=== PATIENT | female | born 1955 | race African-American/Black ===

== ENCOUNTER 2017-04-17 06:32 | Day surgery (SDC) | payer MEDICARE, OTHER ==
[2017-04-16 10:29] VITALS: BMI 42.2
--- NOTE | 2017-04-16 13:14 | PREOPHP ---
DATE OF ADMISSION: 04/17/2017 HISTORY OF PRESENT ILLNESS: This 61-year-old patient is admitted for elective cataract surgery on the left eye. The patient has had decreased vision over the past year, creating difficulty with both distance and reading vision. The patient denies prior history of eye disease or injury, however, the patient has had a 40-year history of insulin-dependent diabetes mellitus, systemic hypertension, and hypercholesterolemia. CURRENT MEDICATIONS: 1. Lantus insulin. 2. Furosemide. 3. Hydrochlorothiazide. 4. Omeprazole. 5. Lisinopril. 6. Simvastatin. 7. Abilify. 8. The patient is on aspirin which has been discontinued one week prior to surgery. ALLERGIES: THERE ARE NO KNOWN ALLERGIES. PHYSICAL EXAMINATION: EYES: Visual acuity with best correction is 20/50 in each eye. Slit lamp examination reveals anterior cortical and nuclear sclerotic cataracts present in both eyes. Applanation tonometry is 21 mmHg in both eyes. Examination of the retinae is within normal limits. However, there is evidence of previously treated diabetic macular edema in both eyes. The patient has also previously had intravitreal Avastin injections for the macular edema. DIAGNOSIS: Cataract, left eye. PLAN: Cataract extraction with lens implant, left eye. The risks and alternatives to the surgery have been discussed with her as well as the potential limitation of visual improvement due to the diabetic macular edema. The patient understands this and agrees to proceed with surgery in hopes of attaining some improvement of visual function leading to greater ability to perform activities of daily living. Dictated By: Will Kilgore MD /cleve/david /Document#: [id number]
[2017-04-17] VITALS (7 sets, daily range): BP systolic 20–130; BP diastolic 50–62; PULSE 58–74; RESP 16–30; Ht 165.1 cm; Wt 114.0 kg
[~2017-04-17] VITALS: Ht 165.1 cm; Wt 114.0 kg
[~2017-04-17 06:32] MED LIST: ACET-2047 PO; ALBU8.5H5 IH; ARIP30TA10 PO; ASPI325T4 PO; CARBACHOL 0.01% 1.5 ML OPH INJ ONE; CEFAZOLIN 1 GM INJ ONE; CYCLOPENTOLATE/PHENYLEPH 2 ML OPH OPER SCH; DEXAMETHASONE 4 MG/ML 1 ML INJ ONE; DICLOFENAC 0.1% 2.5 ML OPH OPER SCH; EPINEPHrine 1 MG INJ ONE; GENTAMICIN 80 MG INJ ONE; HYDR-3498 PO; HYDR-3672 PO; LIDOCAINE 4% (MPF) 5 ML INJ ONE; LISI-313 PO; MAGN400O4 PO; METO-336 PO; ONDA4VIA2 IV; PANT40TA4 PO; SIMV20TA2 PO; SS SC; TROPICAMIDE 1% 3ML OPH OPER SCH; UDMYL PO; ZOLP5TAB7 PO; [UNRECOGNIZED DRUG - CODE] MC; [UNRECOGNIZED DRUG - CODE] TP
[2017-04-17] MEDS ORDERED: MOXIFLOXACIN 0.5% 3 ML OPH ONE (07:13)
[2017-04-17] MEDS ORDERED: MOXIFLOXACIN 0.5% 3 ML OPH OPER SCH (07:30)
[2017-04-17] MEDS ORDERED: LISI40TA9 PO (07:33)
[2017-04-17] MEDS ORDERED: HYDR100T25 PO (07:36)
[2017-04-17] MEDS ORDERED: OMEP40CA6 PO (07:36)
[2017-04-17] MEDS ORDERED: HYDR12.58 PO (07:37)
[2017-04-17] MEDS ORDERED: POTA10TA37 PO (07:38)
[2017-04-17] MEDS ORDERED: FURO20TA3 PO (07:38)
[2017-04-17] MEDS ORDERED: HYDR-902 PO (07:39)
[2017-04-17] MEDS ORDERED: LANT3I SC (07:39)
[2017-04-17] MEDS ORDERED: NOVMIX SC (07:40)
[2017-04-17] MEDS ORDERED: BEN25 PO (07:41)
[2017-04-17] MEDS ORDERED: DEXAMETHASONE 4 MG/ML 1 ML INJ INJ ONE (08:25)
[2017-04-17] MEDS ORDERED: CARBACHOL 0.01% 1.5 ML OPH INJ IO ONE (08:25)
[2017-04-17] MEDS ORDERED: CEFAZOLIN 1 GM INJ INJ ONE (08:25)
[2017-04-17] MEDS ORDERED: PROPOFOL 20 ML ONE (09:12)
--- NOTE | 2017-04-17 09:19 | SIPON ---
Date/Time of Note Date/Time of Note DATE: 04/17/17 TIME: 09:18 Operative Report Preoperative Diagnosis cataract os Postoperative Diagnosis same Operation/Procedure Performed cataract lenbs implant left eye Surgeon Magui montero none Anesthesia: MAC Estimated blood loss: none Transfusion Required none Specimen none Grafts/Implants lens implant os Complications none ANGÉLICA CISNEROS MD Apr 17, 2017 09:19
[2017-04-17] MEDS ORDERED: LABETALOL HCL 20MG INJ IV PRN (09:30)
[2017-04-17] MEDS ORDERED: DIPHENHYDRAMINE 50 MG INJ IV PRN (09:30)
[2017-04-17] MEDS ORDERED: METOCLOPRAMIDE 10 MG INJ IV PRN (09:30)
[2017-04-17] MEDS ORDERED: hydrALAzine 20 MG INJ IV PRN (09:30)
[2017-04-17] MEDS ORDERED: FENTAnyl 50 MCG/ML VIAL IV PRN ×3 (09:30)
[2017-04-17] MEDS ORDERED: EPHEDrine SULFATE 50 MG/5 ML SYG IV PRN (09:30)
[2017-04-17] MEDS ORDERED: OXYCODONE/ACETAMINOPHEN (5/325) TAB PO PRN ×2 (09:30)
[2017-04-17] MEDS ORDERED: ONDANSETRON 4 MG INJ IV PRN (09:30)
[2017-04-17] MEDS ORDERED: MEPERIDINE 25 MG INJ IV PRN (09:30)
[2017-04-17] MEDS ORDERED: MIDAZOLAM 1 MG/ML 2 ML INJ IV PRN (09:30)
--- NOTE | 2017-04-17 10:12 | OPR ---
DATE OF OPERATION: 04/17/2017 PREOPERATIVE DIAGNOSIS: Cataract, left eye. POSTOPERATIVE DIAGNOSIS: Cataract, left eye. SURGEON: Will Kilgore MD FRUIT PACKER: None. ANESTHESIA: Local standby. ANESTHESIOLOGIST: Dr. Carter OPERATION: Phacoemulsification with posterior chamber intraocular lens implant, left eye. PROCEDURE: The patient was brought to the operating room and placed on the table with an IV in place and the patient attached to an quality assurance monitor. Oxygen was given via face mask. After some intravenous sedation was administered, local anesthesia was given using Xylocaine 2% with epinephrine, mixed with Marcaine 0.5%. This was given in a lid block and retrobulbar injection. The patient was then prepped and draped in the usual sterile manner. A wire lid speculum was inserted between the lids of the left eye. A Superblade was used to enter the anterior chamber at the corneoscleral limbus at the 10:30 o'clock position. A separate incision was made using a 3.0-mm keratome which entered the corneoscleral junction at the 12 o'clock position. Through this 3-mm opening, an irrigating cystotome was introduced into the anterior chamber. The chamber was filled with Viscoat and an anterior capsulotomy was performed. Balanced salt solution was then used for hydrodissection of the lens. A phacoemulsification handpiece was then brought into the field and introduced into the anterior chamber. The lens nucleus was emulsified using a deep groove and cracking the nucleus into quadrants. Following this, each quadrant was aspirated and emulsified at the pupillary margin. After this was completed, the irrigation/aspiration handpiece was brought to the field, introduced into the posterior chamber, and the lens cortical material was removed. When this was completed, Provisc was injected into the anterior and posterior chambers. The 3-mm opening had its internal lips enlarged, and then the posterior chamber intraocular lens measuring 21.5 diopters ([employer]) model LI61AO was then injected into the posterior chamber using the lens injector system. After the leading haptic was introduced into the capsular bag and the lens optic was present in the center of the eye, the injector was removed and the trailing haptic was grasped with non-toothed forceps and introduced into the capsular fold superiorly. A Sinskey hook was then used to rotate the intraocular lens so that the lips were oriented in the horizontal meridian. One 10-0 nylon suture was placed across the wound. Prior to tying, the irrigation/aspiration handpiece was reintroduced into the anterior chamber to remove the Viscoat. Miochol was instilled to constrict the pupil, and then the 10-0 nylon suture was tied. The ends were cut short and then the knot was buried. Then, 0.5 mL of dexamethasone and 0.5 mL of Ancef were injected into the sub-Tenon space in the inferior fornix. Ciloxan drops were then placed on the surface of the eye. The speculum was removed and a patch was applied. The patient then left the operating room in satisfactory condition. Dictated By: Will Kilgore MD /clvee/garrison /Document#: [id number] CC: RICARDO
== END 2017-04-17 10:38 | disposition home or self-care (01) ==
LOC: SDS 06:32
PROVIDERS: ATTEND Ophthalmology
DX: H26.9 Unspecified cataract (principal); E66.01 Morbid (severe) obesity due to excess calories; Z68.41 Body mass index [BMI] 40.0-44.9, adult; I10 Essential (primary) hypertension; E78.5 Hyperlipidemia, unspecified; J44.9 Chronic obstructive pulmonary disease, unspecified; F32.9 Major depressive disorder, single episode, unspecified
CPT/HCPCS: 66984; 82962; J0171; J0690; J1100; J1580; V2632